=== PATIENT | male | born 2005 | race Caucasian/White ===

== ENCOUNTER 2025-05-10 02:10 | Emergency (ER) | payer BC, MEDICAID | END 2025-05-10 02:42 | disposition home or self-care (01) | LOC: LB.ED 02:10 | DX: S01.01XA Laceration without foreign body of scalp, initial encounter (principal); W01.190A Fall on same level from slipping, tripping and stumbling with subsequent striking against furniture, initial encounter; Y92.511 Restaurant or cafe as the place of occurrence of the external cause | CPT/HCPCS: 12002; 99282 ==